=== PATIENT | female | born 1970 | race Caucasian/White ===

== ENCOUNTER 2016-12-09 22:43 | Emergency (ER) | payer OTHER, MEDICAID ==
[~2016-12-09] VITALS: Ht 167.6 cm; Wt 85.7 kg
[~2016-12-09 22:43] MED LIST: AMLO5TAB4 PO; BACL10TA PO; BUPR300T55 PO; DIPH25CA83 PO; GABA800T PO; HYDR-1189 PO; IND25 PO; LAMO200T2 PO; LORA-258 PO; OMEP20CA10 PO; OXYC-130 PO; SIMV20TA2 PO; TRAZ-126 PO
[2016-12-09 22:50] VITALS: BP 95/57; PULSE 76; RESP 16; TEMP 98; O2SAT 98
[2016-12-09] MEDS ORDERED: NACL 0.9% 1,000 ML IV ONE (23:37)
[2016-12-09] MEDS ORDERED: KETOROLAC TROMETHAMINE 30 MG VIAL IVP ONE (23:45)
--- NOTE | 2016-12-09 23:55 | NUR ---
Patient to ER bed 8 to gown for evaluation. Side rails up. Report given to SOY Claire.
--- NOTE | 2016-12-09 23:55 | NUR ---
ER Dr. Vasques at bedside examining patient.
--- NOTE | 2016-12-10 00:10 | NUR ---
Pt came in by S ambulance. Pt states that her R leg was swollen since the whole morning and the pain 10/10. Pt has pedal edema +4 in the R leg. No redness noted. AAOx4. Will continue to monitor. No other injuries or complaints mentioned. -trauma. No distress noted.
[2016-12-10] MEDS ORDERED: HYDROcodone/ACETAMIN 5-325 MG TAB (NORCO/ VICODIN) PO ONE (00:15)
[2016-12-10 00:52] LABS: HEMATOCRIT 34.2 % (36-48); HEMOGLOBIN 11.4 g/dL (12.0-16.0); MEAN CORPUSCULAR HEMOGLOBIN 30 pg (27-31); MEAN CORPUSCULAR HGB CONC 33 % (32-36); MEAN CORPUSCULAR VOLUME 90 fL (79.0-98.0); PLATELET COUNT (AUTO) 313 K/uL (130-430); RED CELL DISTRIBUTION WIDTH 14.4 % (9.0-15.0)
[2016-12-10 01:02] LABS: PROTHROMBIN TIME 10.6 SECS (9.5-12.5)
[2016-12-10 01:06] LABS: CALCIUM 9.2 mg/dL (8.4-11.0); CREATININE 1.2 mg/dL (0.55-1.30)
[2016-12-10 01:11] LABS: ALBUMIN 3.5 g/dL (3.4-4.8); TOTAL BILIRUBIN 0.6 mg/dL (0.0-1.0); TOTAL PROTEIN, SERUM 6.7 g/dL (6.4-8.3); URIC ACID 5.6 mg/dL (2.4-7.0)
--- NOTE | 2016-12-10 01:20 | NUR ---
# 14 FR In and Out catheter with use of sterile technique. Immediate return of 500 ml yellow urine noted. Urine sample collected and sent to lab. Pt tolerated procedure well.
[2016-12-10 01:33] LABS: BAND % (MANUAL) 1 % (0-6); BASOPHILS % (MANUAL) 0 % (0-2); EOSINOPHILS % (MANUAL) 18 % (0-7); LYMPHOCYTES % (MANUAL) 27 % (20-46); MONOCYTES % (MANUAL) 9 % (0-11)
[2016-12-10 01:47] LABS: ERYTHROCYTE SEDIMENTATION RATE 22 MM/HR (0-20)
--- NOTE | 2016-12-10 03:20 | NUR ---
Pt is resting comfortably. VSS. Will continue to monitor. AAOx4. No distress noted.
[2016-12-10 05:16] VITALS: BP 118/60; PULSE 74; RESP 16; TEMP 98; O2SAT 98
--- NOTE | 2016-12-10 05:16 | NUR ---
Patient given written and verbal discharge instructions and verbalizes understanding. ER MD discussed with patient the results and treatment provided. Patient in stable condition. ID arm band removed. IV catheter removed intact and dressing applied, no active bleeding. Rx of Lanagan and ibuprofen given. Patient educated on pain management and to follow up with PMD. Pain Scale 2/10. Opportunity for questions provided and answered.
== END 2016-12-10 05:16 | disposition home or self-care (01) ==
LOC: SED 22:43
DX: M17.11 Unilateral primary osteoarthritis, right knee (principal); M25.561 Pain in right knee; G89.29 Other chronic pain; H92.09 Otalgia, unspecified ear; F03.90 Unspecified dementia, unspecified severity, without behavioral disturbance, psychotic disturbance, mood disturbance, and anxiety; E11.9 Type 2 diabetes mellitus without complications; I10 Essential (primary) hypertension; F31.9 Bipolar disorder, unspecified; G35 Multiple sclerosis; Z88.0 Allergy status to penicillin
CPT/HCPCS: 36415; 73560; 80053; 81025; 84550; 85007; 85027; 85610; 85651; 93971; 96374; 99285; J1885; J7030

== ENCOUNTER 2017-02-09 17:42 | Emergency (ER) | payer OTHER, MEDICAID ==
[~2017-02-09] VITALS: Ht 165.1 cm; Wt 83.9 kg
[2017-02-09 17:42] VITALS: BP_SYST 104
[~2017-02-09 17:42] MED LIST changes: -HYDR-1189 PO; -OXYC-130 PO
[2017-02-09 18:04] LABS: BASOPHILS % (AUTO) 0.6 % (0.0-2.0); EOSINOPHILS % (AUTO) 0.4 % (0.0-4.0); HEMATOCRIT 39.9 % (36-48); HEMOGLOBIN 13.1 g/dL (12.0-16.0); LYMPHOCYTES # (AUTO) 1.7 K/uL (1.0-5.5); LYMPHOCYTES % (AUTO) 25.9 % (20.5-51.5); MEAN CORPUSCULAR HEMOGLOBIN 29 pg (27-31); MEAN CORPUSCULAR HGB CONC 33 % (32-36); MEAN CORPUSCULAR VOLUME 89 fL (79.0-98.0); MONOCYTES # (AUTO) 0.6 K/uL (0.0-1.0); MONOCYTES % (AUTO) 9.5 % (1.7-9.3); NEUTROPHILS # (AUTO) 4.3 K/uL (1.8-7.7); NEUTROPHILS % (AUTO) 63.6 % (40.0-70.0); PLATELET COUNT (AUTO) 250 K/uL (130-430); RED BLOOD CELL COUNT(AUTO) 4.49 MIL/uL (4.2-6.2); RED CELL DISTRIBUTION WIDTH 13.5 % (9.0-15.0); WHITE BLOOD COUNT (AUTO) 6.6 K/uL (4.8-10.8)
[2017-02-09 18:18] LABS: CALCIUM 9.3 mg/dL (8.4-11.0); CREATININE 1.04 mg/dL (0.55-1.30); POTASSIUM 3.9 mmol/L (3.5-5.1)
[2017-02-09 18:21] LABS: PROTHROMBIN TIME 10.4 SECS (9.5-12.5)
[2017-02-09 18:25] LABS: ALBUMIN 3.6 g/dL (3.4-4.8); TOTAL BILIRUBIN 0.2 mg/dL (0.0-1.0); TOTAL PROTEIN, SERUM 7.5 g/dL (6.4-8.3)
[2017-02-09 19:06] LABS: BILIRUBIN,URINE NEGATIVE (NEGATIVE); CLARITY/URINE CLOUDY (CLEAR); COLOR,URINE YELLOW (YELLOW); GLUCOSE,URINE NEGATIVE (NEGATIVE); KETONES,URINE NEGATIVE (NEGATIVE); LEUKOCYTE ESTERASE ,URINE 3+ (NEGATIVE); NITRITE, URINE POSITIVE (NEGATIVE); PROTEIN URINE NEGATIVE (NEGATIVE); UROBILINOGEN,URINE 0.2 (0.2-1.0)
[2017-02-09 19:15] LABS: BLOOD, URINE TRACE (NEGATIVE)
[2017-02-09 19:20] LABS: BACTERIA,URINE MANY /HPF (None Seen); MUCUS,URINE None Seen /LPF (None Seen); WBC,URINE 50-80 /HPF (0-3)
[2017-02-09 21:12] VITALS: BP_SYST 124
== END 2017-02-09 21:12 | disposition home or self-care (01) ==
LOC: SED 17:42
DX: E11.65 Type 2 diabetes mellitus with hyperglycemia (principal); N39.0 Urinary tract infection, site not specified; F03.90 Unspecified dementia, unspecified severity, without behavioral disturbance, psychotic disturbance, mood disturbance, and anxiety; I10 Essential (primary) hypertension; F31.9 Bipolar disorder, unspecified; Z88.0 Allergy status to penicillin; Z79.899 Other long term (current) drug therapy
CPT/HCPCS: 36415; 80053; 81000-TC; 83880; 84484; 85025; 85610-TC; 87086; 87186-TC; 93005; 99285